=== PATIENT | male | born 1950 | race Caucasian/White ===

== ENCOUNTER 2023-04-05 11:05 | Outpatient (CLI) | payer MEDICARE ==
[2023-04-05 11:46] LABS: Anion Gap 16 mmol/L (10-20); BUN (Urea Nitrogen) 13 mg/dL (8.4-25.7); Calc. Creatinine Clearance 0 mL/min (70-130); Calcium 9.3 mg/dL (7.8-10.44); Carbon Dioxide 23 mmol/L (23-31); Chloride 104 mmol/L (98-107); Estimated GFR 65; Glucose 198 mg/dL (83-110); Potassium 4.7 mmol/L (3.5-5.1); Sodium 138 mmol/L (136-145)
== END 2023-04-05 11:06 | disposition home or self-care (01) ==
LOC: NAV LAB 11:05
PROVIDERS: ATTEND Family Medicine
DX: E87.5 Hyperkalemia (principal)
CPT/HCPCS: 36415; 80048